=== PATIENT | female | born 1945 | race African-American/Black ===

== ENCOUNTER 2018-06-07 20:33 | Emergency (ER) | payer OTHER ==
[~2018-06-07] VITALS: Ht 162.6 cm; Wt 113.4 kg
[2018-06-07] MEDS ORDERED: NORCO 5-325 TA1 EACH PO (21:08)
[2018-06-07] MEDS ORDERED: AMLODIPINE BESY10 MG PO (21:29)
[2018-06-07] MEDS ORDERED: ATENOLOL 100MG100 MG PO (21:29)
[2018-06-07] MEDS ORDERED: ULORIC40 MG PO (21:30)
[2018-06-07] MEDS ORDERED: COLCHICINE0.6 M1 PO (21:30)
[2018-06-07] MEDS ORDERED: CELEBREX 200 M200 M1 PO (21:31)
[2018-06-07] MEDS ORDERED: COZAAR 25 MG TA25 M1 PO (21:31)
[2018-06-07 22:35] VITALS: BP 148/73
== END 2018-06-07 22:36 | disposition home or self-care (01) ==
LOC: ER 20:33
DX: M43.6 Torticollis (principal); I10 Essential (primary) hypertension; M19.90 Unspecified osteoarthritis, unspecified site; Z90.49 Acquired absence of other specified parts of digestive tract; Z90.710 Acquired absence of both cervix and uterus; Z88.0 Allergy status to penicillin; Z88.6 Allergy status to analgesic agent